=== PATIENT | male | born 1990 | race Caucasian/White ===

== ENCOUNTER 2017-01-03 18:43 | Emergency (ER) | payer BC, OTHER ==
--- NOTE | 2017-01-03 19:54 | ED ---
Laceration/Wound HPI - HPI Summary HPI Summary: 26M presents with right middle finger laceration. He cut it on a knife. He does not want sutures. He denies any numbness or tingling. The area has been throbbing. He immunizations are up to date. - History of Current Complaint Stated Complaint: RT MIDDLE FINGER LAC Time Seen by Provider: 01/03/17 19:28 Pain Intensity: 3 - Allergy/Home Medications Allergies/Adverse Reactions: Allergies Allergy/AdvReac Type Severity Reaction Status Date / Time No Known Allergies Allergy Verified 12/02/12 11:16 PMH/Surg Hx/FS Hx/Imm Hx Endocrine/Hematology History: Denies: Hx Anticoagulant Therapy Respiratory History: Denies: Hx Asthma - Surgical History Surgery Procedure, Year, and Place: INGUINAL HERNIA Infectious Disease History: No Infectious Disease History: Denies: Traveled Outside the [place] in Last 30 Days - Family History Known Family History: Negative: Cardiac Disease - Social History Alcohol Use: Occasionally Substance Use Type: Reports: Marijuana Smoking Status (MU): Never Smoked Tobacco Review of Systems Negative: Fever Negative: Chest Pain Negative: Shortness Of Breath Positive: Other - laceration right thumb All Other Systems Reviewed And Are Negative: Yes Physical Exam Triage Information Reviewed: Yes Vital Signs On Initial Exam: Initial Vitals Temp Pulse Resp BP Pulse Ox 98.9 F 80 20 139/86 82 01/03/17 18:46 01/03/17 18:46 01/03/17 18:46 01/03/17 18:46 01/03/17 18:46 Vital Signs Reviewed: Yes Appearance: Positive: Well-Appearing Skin: Positive: Warm, Dry, Other - 1cm laceration that ends in avulsion Head/Face: Positive: Normal Head/Face Inspection Eyes: Positive: Normal, Conjunctiva Clear Respiratory/Lung Sounds: Positive: Clear to Auscultation, Breath Sounds Present Cardiovascular: Positive: Normal, RRR Musculoskeletal: Positive: Strength/ROM Intact - finger, Other - good pulses, capillary refill<2 secs Procedures - Laceration/Wound Repair 1 Location: Other - right middle finger Description: Linear Length, Depth and Shape: 1cm ends in avulsion Irrigated w/ Saline (ccs): 300 Closure: Skin Adhesive, SteriStrips Diagnostics - Vital Signs Vital Signs Temp Pulse Resp BP Pulse Ox 01/03/17 19:34 98.9 F 80 20 139/86 99 08/21/17 18:46 98.9 F 80 20 139/86 82 - Laboratory Lab Statement: Any lab studies that have been ordered have been reviewed, and results considered in the medical decision making process. Laceration Repair Course/Dx - Course Course Of Treatment: 26M presents with right middle finger laceration. He cut it on a knife. He does not want sutures. He denies any numbness or tingling. The area has been throbbing. He immunizations are up to date. on exam has avulsion like laceration. patient wants glue. glued and placed in pressure dressing. patient understands and agrees with plan. - Differential Dx Differental Diagnoses: Abrasion, Avulsion, Laceration - Clinical Impression Provider Diagnoses: Laceration of finger Discharge - Discharge Plan Condition: Good Disposition: HOME Patient Education Materials: Skin Adhesive Care (ED) Referrals: Christopher Moyer MD [Primary Care Provider] - Additional Instructions: Place ice on area Take Tylenol for pain as needed every 6 hours Glue will fall off on own Avoid scrubbing area Use sunscreen on area after laceration has healed Return to ED if develop any signs of infection or any new or worsening symptoms
[2017-01-03 20:25] VITALS: BP 119/78
== END 2017-01-03 20:20 | disposition home or self-care (01) ==
LOC: ED 18:43
DX: S61.212A Laceration without foreign body of right middle finger without damage to nail, initial encounter (principal); W26.0XXA Contact with knife, initial encounter; Y93.9 Activity, unspecified; Y92.9 Unspecified place or not applicable
CPT/HCPCS: 99281